=== PATIENT | female | born 1945 | race Caucasian/White ===

== ENCOUNTER 2018-07-13 17:14 | Inpatient (IN) | payer MEDICARE ==
[~2018-07-13] VITALS: Ht 170.2 cm; Wt 82.8 kg
[~2018-07-13 17:14] MED LIST: ASA81 MG PO; BENTYL20 MG PO; BUPROPION HCL150 M2 PO; CELEBREX100 MG PO; COUMADIN3 MG PO; DIGOXIN125 MCG PO; GABAPENTIN100 MG PO; LIPITOR10 MG PO; LISINOPRIL20 MG; MELATONIN 3 MG1 EACH PO; PROMETHAZINE HC25 M1 PO; Z.0.ASPIRIN325 MG PO; Z.0.METOPROLOL TART2 PO; Z.0.NORCO 5-325 TA1 PO; Z.0.PLAVIX75 MG PO; [UNRECOGNIZED DRUG - OTHER] PO
[2018-07-13] MEDS ORDERED: ASPIRIN 81 MG CHEW TAB PO ONE (18:00)
[2018-07-13 18:30] LABS: BASOPHILS # (AUTO) 0.1 (0.0-0.1); BASOPHILS % 0.8 % (0.0-1.0); EOSINOPHILS # (AUTO) 0.2 (0.0-0.4); EOSINOPHILS % 1.9 % (0.0-6.0); HEMATOCRIT 40.3 % (34.2-44.1); HEMOGLOBIN 13.2 g/dL (12.0-16.0); LYMPHOCYTES # (AUTO) 1.9 (1.0-3.2); LYMPHOCYTES % 20.5 % (18.0-39.1); MEAN CORPUSCULAR HEMOGLOBIN 31.2 pg (28-32); MEAN CORPUSCULAR HGB CONC 32.8 g/dL (31-35); MEAN CORPUSCULAR VOLUME 95.3 fL (81-99); MONOCYTES # (AUTO) 0.7 (0.2-0.8); MONOCYTES % 7.2 % (4.4-11.3); NEUTROPHILS # (AUTO) 6.3 (2.1-6.9); NEUTROPHILS % 69.3 % (38.7-80.0); PLATELET COUNT 187 x10e3/uL (140-360); RED BLOOD COUNT 4.23 x10e6/uL (3.6-5.1); RED CELL DISTRIBUTION WIDTH 13.8 % (11.7-14.4)
[2018-07-13 18:45] LABS: INR 2.81; PARTIAL THROMBOPLASTIN TIME 35.1 seconds (23.8-35.5); PROTHROMBIN TIME 27.8 seconds (11.9-14.5)
[2018-07-13 18:50] LABS: ALBUMIN 3.6 g/dL (3.5-5.0); ALBUMIN/GLOBULIN RATIO 1.2 (0.8-2.0); ANION GAP 15.2 mmol/L (8-16); CALCIUM 10.5 mg/dL (8.4-10.2); CREATININE, SERUM 1.59 mg/dL (0.57-1.11); POTASSIUM 4.2 mmol/L (3.5-5.1)
[2018-07-13 18:58] LABS: CREATINE KINASE MB 1.9 ng/mL (0-5.0)
--- NOTE | 2018-07-13 19:04 | Diagnostic Imaging Report ---
Examination: Single AP view of the chest. COMPARISON: None. INDICATION: Weakness, shortness of breath DISCUSSION: Lines/tubes: Dual-lead pacemaker Lungs: Central pulmonary venous congestion. No edema or consolidation. Pleura: There is no pleural effusion or pneumothorax. Heart and mediastinum: Cardiomegaly Bones and soft tissues: No acute bony abnormalities. IMPRESSION: 1. Cardiomegaly without decompensation Signed by: Dr. Alphonse Gann M.D. on 07/13/2018 7:01 PM
[2018-07-13 22:09] LABS: CLARITY,URINE SL CLOUDY (CLEAR); COLOR,URINE YELLOW (YELLOW)
[2018-07-13 22:10] LABS: BILIRUBIN,URINE NEGATIVE (NEGATIVE); KETONES,URINE TRACE (NEGATIVE); LEUKOCYTE ESTERASE ,URINE 1+ (NEGATIVE); NITRITE,URINE NEGATIVE (NEGATIVE); PROTEIN,URINE DIPSTICK TRACE (NEGATIVE); URINE UROBILINOGEN 0.2 mg/dL (0.2 - 1)
[2018-07-13 22:19] LABS: BACTERIA,URINE MANY /HPF; EPITHELIAL CELLS,URINE MODERATE /LPF
[2018-07-13] MEDS ORDERED: ONDANSETRON HCL INJ 2 MG/ML VIAL IV PRN (22:45)
[2018-07-13] MEDS ORDERED: METOPROLOL TARTRATE 25 MG TAB PO SCH (22:45)
[2018-07-13] MEDS ORDERED: FAMOTIDINE 20 MG TAB PO SCH (22:45)
[2018-07-13] MEDS ORDERED: NITROGLYCERIN 0.4 MG SUBL SL PRN (22:45)
[2018-07-13] MEDS ORDERED: SODIUM CHLORIDE FLUSH 10 ML SYR INJ PRN (22:45)
[2018-07-13] MEDS ORDERED: ASPIRIN 81 MG CHEW TAB ONE (22:49)
[2018-07-13 23:56] VITALS: BP 170/73
[2018-07-14] VITALS (23 sets, daily range): BP systolic 92–174; BP diastolic 46–105
[2018-07-14] MEDS: MORPHINE SULFATE 2 MG/ML SYR IV PRN ×4 (00:19→15:05)
[2018-07-14 02:11] LABS: CREATINE KINASE MB 1.9 ng/mL (0-5.0)
[2018-07-14 04:49] LABS: BASOPHILS # (AUTO) 0.1 (0.0-0.1); BASOPHILS % 0.6 % (0.0-1.0); EOSINOPHILS # (AUTO) 0.4 (0.0-0.4); EOSINOPHILS % 3.5 % (0.0-6.0); HEMATOCRIT 38.6 % (34.2-44.1); LYMPHOCYTES # (AUTO) 2.7 (1.0-3.2); LYMPHOCYTES % 27.4 % (18.0-39.1); MEAN CORPUSCULAR HEMOGLOBIN 31.8 pg (28-32); MEAN CORPUSCULAR HGB CONC 33.7 g/dL (31-35); MEAN CORPUSCULAR VOLUME 94.4 fL (81-99); MONOCYTES # (AUTO) 0.9 (0.2-0.8); MONOCYTES % 8.6 % (4.4-11.3); NEUTROPHILS # (AUTO) 5.9 (2.1-6.9); NEUTROPHILS % 59.6 % (38.7-80.0); PLATELET COUNT 155 x10e3/uL (140-360); RED BLOOD COUNT 4.09 x10e6/uL (3.6-5.1); RED CELL DISTRIBUTION WIDTH 13.5 % (11.7-14.4)
[2018-07-14 05:04] LABS: ANION GAP 13.9 mmol/L (8-16); CALCIUM 9.9 mg/dL (8.4-10.2); CHOL/HDL RATIO 5.5 (3.0-3.6); CREATININE, SERUM 1.22 mg/dL (0.57-1.11); POTASSIUM 3.9 mmol/L (3.5-5.1)
[2018-07-14] MEDS: FAMOTIDINE 20 MG TAB PO SCH ×2 (08:24→21:00)
[2018-07-14] MEDS: ASPIRIN 81 MG ENTERIC COATED PO SCH (08:25)
[2018-07-14] MEDS ORDERED: METOPROLOL TARTRATE 25 MG TAB PO SCH (09:00)
[2018-07-14 09:42] LABS: CREATINE KINASE MB 1.9 ng/mL (0-5.0)
[2018-07-14 15:41] LABS: BILIRUBIN,URINE NEGATIVE (NEGATIVE); CLARITY,URINE CLEAR (CLEAR); COLOR,URINE STRAW (YELLOW); KETONES,URINE NEGATIVE (NEGATIVE); LEUKOCYTE ESTERASE ,URINE TRACE (NEGATIVE); NITRITE,URINE NEGATIVE (NEGATIVE); PROTEIN,URINE DIPSTICK NEGATIVE (NEGATIVE); URINE UROBILINOGEN 0.2 mg/dL (0.2 - 1)
[2018-07-14 16:04] LABS: BACTERIA,URINE MANY /HPF; RBC,URINE 0-5 /HPF (0-5); TRANSITIONAL EPI CELLS,URINE FEW; WBC,URINE (MAN) 21-50 /HPF (0-5)
[2018-07-14] MEDS: LEVOFLOXACIN 750MG/D5W 150ML 150 ML IV SCH (17:38)
[2018-07-14] MEDS ORDERED: SODIUM CHLORIDE 0.9% 250ML 250 ML ONE (17:39)
[2018-07-14] MEDS ORDERED: BUSPIRONE HCL 5 MG TAB PO SCH (21:00)
[2018-07-14] MEDS: OMEGA 3 POLYUNSAT FATTY ACIDS 1000 MG SOFTGEL PO SCH (21:00)
[2018-07-14] MEDS ORDERED: TRAZODONE HCL 50 MG TAB PO SCH (21:00)
[2018-07-14] MEDS: GABAPENTIN 300 MG CAP PO SCH (21:00)
[2018-07-14] MEDS: TRAZODONE HCL 50 MG TAB PO SCH (21:00)
[2018-07-15] VITALS (11 sets, daily range): BP systolic 113–154; BP diastolic 54–63
[2018-07-15 05:29] LABS: INR 2.38; PROTHROMBIN TIME 24.4 seconds (11.9-14.5)
[2018-07-15 05:30] LABS: PARTIAL THROMBOPLASTIN TIME 35.3 seconds (23.8-35.5)
[2018-07-15] MEDS: ASPIRIN 81 MG ENTERIC COATED PO SCH (08:20)
[2018-07-15] MEDS: OLMESARTAN 20 MG TAB PO SCH (08:20)
[2018-07-15] MEDS: FAMOTIDINE 20 MG TAB PO SCH ×2 (08:20→21:00)
[2018-07-15] MEDS: GABAPENTIN 300 MG CAP PO SCH ×3 (08:20→21:00)
[2018-07-15] MEDS: DIGOXIN 0.125 MG TAB PO SCH (09:20)
[2018-07-15] MEDS: METOPROLOL TARTRATE 25 MG TAB PO SCH ×2 (09:21→16:01)
--- NOTE | 2018-07-15 09:51 | Progress Note ---
DATE: July 15, 2018 Ms. Whitehead is more awake. She, however, continues to have some alteration in her speech. PHYSICAL EXAMINATION VITALS: Afebrile, heart rate 71, blood pressure 124/50. CARDIOVASCULAR: Regular rhythm. No murmurs. LUNGS: Clear to auscultation bilaterally. ABDOMEN: Soft. EXTREMITIES: Pedal pulses are absent. Telemetry shows paced rhythm. INR is 2.38. Troponins remained 0.7. Creatinine is 1.22. ASSESSMENT 1. Chronic troponin elevation in the absence of myocardial infarction. 2. Urinary tract infection. 3. Atrial fibrillation: Status post permanent pacemaker placement. PLAN: Echocardiogram will be obtained to evaluate for LV function. Current medications are appropriate. IV antibiotics ongoing. The patient is slowly improving. Will continue to follow. I thank Dr. Foote for this consultation. Job#: [id number] JED
[2018-07-15] MEDS ORDERED: IBUPROFEN 600 MG TAB PO PRN (11:45)
[2018-07-15] MEDS: LEVOFLOXACIN 750MG/D5W 150ML 150 ML IV SCH (16:22)
[2018-07-15] MEDS ORDERED: WARFARIN SOD 2 MG TAB PO SCH (17:00)
[2018-07-15] MEDS: BUSPIRONE HCL 5 MG TAB PO SCH (21:00)
[2018-07-15] MEDS: TRAZODONE HCL 50 MG TAB PO SCH (21:00)
[2018-07-15] MEDS: OMEGA 3 POLYUNSAT FATTY ACIDS 1000 MG SOFTGEL PO SCH (21:00)
[2018-07-16] VITALS (8 sets, daily range): BP systolic 136–153; BP diastolic 56–70
[2018-07-16 05:11] LABS: INR 1.89; PROTHROMBIN TIME 20.4 seconds (11.9-14.5)
[2018-07-16 05:12] LABS: PARTIAL THROMBOPLASTIN TIME 35.1 seconds (23.8-35.5)
--- NOTE | 2018-07-16 09:57 | Progress Note ---
DATE: July 16, 2018 CARDIOLOGY PROGRESS NOTE Ms. Whitehead is much more awake. Denies any chest pain or shortness of breath. She is laying comfortably in bed. PHYSICAL EXAMINATION VITALS: Afebrile, heart rate 60, blood pressure 152/63, and O2 sat is 97%. CARDIOVASCULAR: Regular rhythm. S3 gallop. LUNGS: Clear to auscultation bilaterally. ABDOMEN: Soft. MEDICATIONS: Reviewed. ASSESSMENT 1. Pjlfe-tm-kouxvns systolic heart failure. 2. Coronary artery disease with chronic troponin elevation. PLAN: I will review her prior angiogram from records in the office to be certain if any further delineation of coronary anatomy and ischemia is indicated. In the absence of need for coronary angiography, warfarin will be held. Patient will need an upgrade of her pacemaker to a biventricular pacemaker. This was discussed with Dr. Connolly, zmt operator. Will plan for this procedure early this week. I thank Dr. Foote for this consultation. Job#: [id number] OK
[2018-07-16] MEDS: ASPIRIN 81 MG ENTERIC COATED PO SCH (10:00)
[2018-07-16] MEDS: DIGOXIN 0.125 MG TAB PO SCH (10:00)
[2018-07-16] MEDS: CEFTRIAXONE SOD 1 GM VIAL IV SCH ×2 (10:00→21:45)
[2018-07-16] MEDS: FAMOTIDINE 20 MG TAB PO SCH ×2 (10:00→21:00)
[2018-07-16] MEDS: OLMESARTAN 20 MG TAB PO SCH (10:00)
[2018-07-16] MEDS: GABAPENTIN 300 MG CAP PO SCH ×3 (10:00→21:00)
[2018-07-16] MEDS: METOPROLOL TARTRATE 25 MG TAB PO SCH ×2 (10:00→15:57)
[2018-07-16] MEDS: ACETAMINOPHEN 325 MG TAB PO PRN (17:30)
[2018-07-16] MEDS: OMEGA 3 POLYUNSAT FATTY ACIDS 1000 MG SOFTGEL PO SCH (21:00)
[2018-07-16] MEDS: TRAZODONE HCL 50 MG TAB PO SCH (21:00)
[2018-07-16] MEDS: BUSPIRONE HCL 5 MG TAB PO SCH (21:00)
[2018-07-17 03:36] VITALS: BP 165/70
[2018-07-17 05:44] LABS: INR 1.88; PROTHROMBIN TIME 20.3 seconds (11.9-14.5)
[2018-07-17 05:45] LABS: PARTIAL THROMBOPLASTIN TIME 33.6 seconds (23.8-35.5)
--- NOTE | 2018-07-17 06:34 | Progress Note ---
DATE: This is a patient who comes in with chest pain. Currently, the patient is denying any chest pain and lying comfortably and no complaints. PHYSICAL EXAMINATION GENERAL: The patient is alert and oriented times 3. In good spirits. VITAL SIGNS: Temperature is 97.2, blood pressure 165/70, pulse ox 95% on O2 at 2 L. HEENT: Normocephalic and atraumatic. Pupils reactive to light and accommodation. CV: S1 and S2 irregular. ABDOMEN: Nontender and nondistended. LUNGS: Decreased air entry in lung bonner. EXTREMITIES: Trace edema. LABORATORY VALUES: Digoxin was 0.4. Coags are PT of 20.3, INR 1.8. Coumadin has been held. ASSESSMENT 1. Vxkin-vk-ptneadk systolic heart failure. 2. Coronary artery disease with troponin elevation: The patient is going to have an angiogram today. Warfarin is held. Consult with Dr. Connolly has been done for upgrade of her pacemaker. 3. Urinary tract infection which grew klebsiella and gram-negative rods: Antibiotics were changed to Rocephin. Labs are pending. Will go ahead and do a CBC and CMP tomorrow. Further recommendations per clinical course. For further information, look in the chart. Job#: [id number] JED
[2018-07-17] MEDS ORDERED: REGADENOSON 0.4 MG/5 ML SYR IV ONE (07:58)
[2018-07-17 09:00] VITALS: BP 165/70
[2018-07-17] MEDS: ASPIRIN 81 MG ENTERIC COATED PO SCH (09:00)
[2018-07-17] MEDS: OLMESARTAN 20 MG TAB PO SCH (09:50)
[2018-07-17] MEDS: METOPROLOL TARTRATE 25 MG TAB PO SCH ×2 (09:50→16:51)
[2018-07-17] MEDS: DIGOXIN 0.125 MG TAB PO SCH (09:50)
[2018-07-17] MEDS: GABAPENTIN 300 MG CAP PO SCH ×3 (09:51→21:26)
[2018-07-17] MEDS: FAMOTIDINE 20 MG TAB PO SCH ×2 (09:51→21:26)
[2018-07-17] MEDS: CEFTRIAXONE SOD 1 GM VIAL IV SCH ×2 (09:51→21:26)
--- NOTE | 2018-07-17 12:03 | History and Physical ---
REASON FOR ADMISSION: Altered mental status. HISTORY OF PRESENT ILLNESS: This is a 73-year-old woman with history of atrial flutter status post ablation, sick sinus syndrome status post dual chamber [employer] permanent pacemaker, mild coronary artery disease on cardiac catheterization June 01, 2016, peripheral arterial disease with patent left SFA stent as well as 60% to 70% in-stent restenosis of the right external iliac artery and infrapopliteal peripheral arterial disease, history of CVA, chronic systolic heart failure and hypertension, who presents with complaints of altered mental status. Patient's family indicates she has been progressively more somnolent for the last 2 weeks with complaints of progressive back pain. She denies any chest pain, shortness of breath, palpitations, edema, orthopnea or PND. She denies any fever, chills, cough or diarrhea. Due to her somnolence, she was brought to the ER for further evaluation where she was found to have a mildly elevated troponin of 0.774 and a BNP of 137. Urinalysis had moderate epithelial cells but did demonstrate trace protein, trace ketones, 1+ leukocyte esterase, 6-10 RBCs and 11-20 WBCs with many bacteria. REVIEW OF SYSTEMS: Negative except as per HPI. PAST MEDICAL HISTORY 1. Chronic systolic heart failure. 2. Mild diffuse coronary artery disease on cardiac catheterization June 01, 2016. 3. Atrial flutter status post ablation. 4. Sick sinus syndrome status post [employer] permanent pacemaker. 5. Peripheral arterial disease with patent left SFA stent and most recently left SFA atherectomy and percutaneous transluminal angioplasty. 6. Hypertension. PAST SURGICAL HISTORY: Pacemaker insertion, hysterectomy, cholecystectomy. ALLERGIES: PLEASE SEE EMR. MEDICATIONS: Please see medication list. SOCIAL HISTORY: Smokes a pack a day. No alcohol or drugs. FAMILY HISTORY: Noncontributory to current illness. PHYSICAL EXAMINATION VITAL SIGNS: Temperature 98.7 degrees, pulse 68, respiratory rate 17, blood pressure 139/88, oxygen saturation 100% on 2 liters nasal cannula. GENERAL: Elderly woman in no acute distress. Awake and alert. HEENT: Normocephalic, atraumatic. Pupils equal, no scleral icterus. NECK: Supple. No thyromegaly or cervical lymphadenopathy, no carotid bruits. LUNGS: Clear to auscultation bilaterally. No wheezes or crackles. CARDIOVASCULAR: Normal rate, regular rhythm. No murmur. Normal S1 and S2. ABDOMEN: Soft, nontender. EXTREMITIES: No edema. NEURO: Nonfocal exam. LABS: WBC 9.9, hemoglobin 13, hematocrit 38.6, platelets 155. Sodium 142, potassium 3.9, chloride 107, CO2 25, BUN 17, creatinine 1.22. Troponin 0.774. INR 2.81. CHEST X-RAY: Cardiomegaly without decompensation. ELECTROCARDIOGRAM: Electronic ventricular pacemaker. TELEMETRY: Paced rhythm. IMPRESSION 1. Altered mental status/somnolence. 2. Abnormal urinalysis, suspicious for urinary tract infection. 3. Elevated troponin, not consistent with myocardial infarction. 4. Vruli-hu-ftlsbxn systolic heart failure. 5. Hypertension. 6. Dyslipidemia. 7. Atrial fibrillation status post ablation. 8. Sick sinus syndrome status post permanent pacemaker. 9. Peripheral arterial disease. RECOMMENDATIONS: Repeat UA, send urine culture. Suspect patient's somnolence may be related to a urinary tract infection in light of patient's back pain. Will request medicine consultation with Dr. Foote. In the meantime, pacemaker interrogation although this would not explain patient's symptoms. Continue home cardiac medications otherwise. Job#: [id number] EV
--- NOTE | 2018-07-17 12:28 | Progress Note ---
DATE: July 17, 2018 CARDIOLOGY PROGRESS NOTE SUBJECTIVE: The patient denies chest pain or shortness of breath. She was seen for a nuclear stress test. She is planned for bi-V pacemaker upgrade this afternoon by Dr. Connolly. OBJECTIVE VITAL SIGNS: Temperature 97.8 degrees, pulse 61, respiratory rate 18, blood pressure 165/70, oxygen saturation 95% on 2 liters nasal cannula. GENERAL: Elderly woman in no acute distress. Awake and alert. LUNGS: Clear to auscultation bilaterally. No wheezes or crackles. CARDIOVASCULAR: Normal rate, regular rhythm. No murmur. Normal S1 and S2. ABDOMEN: Soft, nontender. EXTREMITIES: No edema. CARDIAC MEDICATIONS 1. Digoxin 0.125 mg p.o. q.a.m. 2. Metoprolol tartrate 25 mg p.o. b.i.d. 3. Olmesartan 20 mg p.o. daily. 4. Fish oil 1,000 mg p.o. nightly. 5. Aspirin 81 mg p.o. daily. LABS: None today. TELEMETRY: Normal sinus rhythm. IMPRESSION 1. Rtacw-sy-miknbfa systolic heart failure. 2. Coronary artery disease with chronic troponin elevation. 3. Atrial fibrillation. 4. Status post permanent pacemaker implantation. 5. Escherichia coli and Klebsiella pneumoniae urinary tract infection. RECOMMENDATIONS: We will review images from the nuclear stress test once they are available. Given her recent coronary angiogram, cardiac catheterization was deferred. Bi-V pacemaker upgrade this afternoon. Continue current cardiac medications otherwise. Antibiotics per primary service. Thank you for this consult. We will continue to follow. Job#: [id number]
--- NOTE | 2018-07-17 12:52 | Cardiology Report ---
DATE OF STUDY: July 17, 2018 LEXISCAN NUCLEAR STRESS TEST INDICATIONS: Coronary artery disease, congestive heart failure. The patient was stressed using a 1-minute intravenous infusion of Lexiscan. Rest and stress Myoview imaging was obtained. Resting electrocardiogram shows a ventricularly paced rhythm. Both nuclear imaging in rest and stress is normal. However, dilatation of the left ventricle is noted with an end-diastolic volume of 159 mL. LV ejection fraction is 39%. CONCLUSIONS 1. Normal myocardial perfusion study without evidence of ischemia or infarction. 2. Dilated left ventricle with moderately reduced left ventricular ejection fraction of 39%. Job#: [id number]
[2018-07-17] MEDS: ACETAMINOPHEN 325 MG TAB PO PRN (14:38)
[2018-07-17 14:44] VITALS: BP 151/65
[2018-07-17 16:47] VITALS: BP 169/73
[2018-07-17] MEDS ORDERED: BACITRACIN 50,000 UNIT VIAL ONE (17:35)
[2018-07-17] MEDS ORDERED: VANCOMYCIN 1GM/NS 250 ML 250 ML ONE ×2 (17:35→18:06)
[2018-07-17] MEDS ORDERED: LIDOCAINE HCL 2% LOCAL 20 ML VIAL ONE (17:35)
[2018-07-17] MEDS ORDERED: IOPAMIDOL 300MG/ML 50ML INFUS..BTL IV ONE (17:35)
[2018-07-17] MEDS ORDERED: SODIUM CHLORIDE 0.9% 500ML 500 ML ONE (17:35)
[2018-07-17] MEDS ORDERED: SODIUM CHLORIDE 0.9% 1000ML 2,000 ML ONE (17:36)
[2018-07-17] MEDS ORDERED: FENTANYL CITRATE/PF 100MCG/2 ML INJ ONE (18:05)
[2018-07-17] MEDS ORDERED: MIDAZOLAM HCL 2 MG/2 ML VIAL ONE ×2 (18:05→18:27)
[2018-07-17 19:55] VITALS: BP 151/85
[2018-07-17 19:56] VITALS: BP 151/85
[2018-07-17] MEDS: TRAZODONE HCL 50 MG TAB PO SCH (21:00)
[2018-07-17] MEDS: BUSPIRONE HCL 5 MG TAB PO SCH (21:00)
[2018-07-17] MEDS: OMEGA 3 POLYUNSAT FATTY ACIDS 1000 MG SOFTGEL PO SCH (21:26)
--- NOTE | 2018-07-18 00:07 | Operative Report ---
DATE OF PROCEDURE: July 17, 2018 REFERRING PHYSICIAN: Dr. Wadsworth PREPROCEDURE DIAGNOSES: 1. 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 2. Congestive heart failure, class 3. 3. Significant bradycardia with significant right ventricular pacing more than 70%. 4. Chronic persistent atrial fibrillation. POSTPROCEDURE DIAGNOSES: 1. 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 2. Congestive heart failure, class 3. 3. Significant bradycardia with significant right ventricular pacing more than 70%. 4. Chronic persistent atrial fibrillation. ESTIMATED BLOOD LOSS: 5 mL. COMPLICATIONS: None. PROCEDURES PERFORMED: 1. Upgrade to biventricular cardiac pacemaker. 2. Moderate sedation. Moderate conscious sedation was provided under my direct supervision by a sedation-trained nurse. Sedation approximate time 45 minutes, Versed and Fentanyl. There were no complications. See sedation form for details. DESCRIPTION OF PROCEDURE: After informed consent was obtained, patient was brought to the electrophysiology laboratory in a fasting, nonsedated state. Area over her chest was prepped and draped in the usual sterile fashion. Moderate sedation and prophylactic antibiotic were given, 1% lidocaine was used as local anesthetic, and a 3-cm skin incision was made in the left subclavicular area. Electrocautery and sharp and blunt dissection were used to reach the previous device. The device was freed out of the pocket. Vascular access was obtained x1 in the left axillary vein using the modified Seldinger technique under fluoroscopic guidance. A 9.5-Chinese sheath was placed. The coronary sinus was cannulated using AL2 catheter and Wholey wire, CS angiogram was performed, demonstrated a good posterolateral branch, which was successfully cannulated. Pacing threshold there was 2.5 at 0.5, impedance 1060. The sheath was removed from the body. The lead was secured to fascia using #0 silk. Pocket was irrigated with antibiotic solution using the pulse airplane refueler. Hemostasis was meticulous. The old atrial and right ventricular leads were disconnected from the old device and connected to this new device. Also, the new left ventricular lead was connected through this new device, and the new device was placed in the pocket. Incision was closed using Vicryl and Dermabond. Patient tolerated the procedure well. Procedure was deemed complete. SUMMARY OF HARDWARE IMPLANTED: 1. The new biventricular pacemaker is [employer], model #[id number], [id number]. 2. The new left ventricular lead is [employer], [id number], [id number]. 3. The old right atrial and right ventricular leads were [employer], were chronic and working well, used through this new device. IMPRESSION: Successful upgrade to biventricular pacemaker. PLAN: 1. Routine postoperative monitoring on telemetry bed. 2. Chest x-ray. 3. Follow up in 2 weeks. Job#: [id number]
[2018-07-18 00:34] VITALS: BP 152/76
[2018-07-18] MEDS: ACETAMINOPHEN 325 MG TAB PO PRN (02:18)
--- NOTE | 2018-07-18 02:48 | Consultation ---
DATE OF CONSULTATION: July 17, 2018 REFERRING PHYSICIAN: Dr. Wadsworth. REASON FOR CONSULTATION: Cardiomyopathy, pacemaker dependent. HISTORY OF PRESENT ILLNESS: This is a 73-year-old woman with history of chronic persistent atrial fibrillation, history of significant bradycardia with a dual-chamber pacemaker in place. She has been having congestive heart failure with ejection fraction decreasing to 40% associated with shortness of breath. She has congestive heart failure class III. She has significant bradycardia that requires pacing about 70% of the time, was admitted at this time with progressive shortness of breath. Pacemaker is normally functioning. The patient is not pacemaker dependent. REVIEW OF SYSTEMS CONSTITUTIONAL: As per HPI. CARDIOVASCULAR: As per HPI. RESPIRATORY: Negative. GASTROINTESTINAL: Negative. GENITOURINARY: Negative. MUSCULOSKELETAL: Negative. EYES: Negative. ENT: Negative. ALLERGY/IMMUNOLOGY: Negative. PSYCHIATRIC: Negative. PAST MEDICAL HISTORY: Hypertension, cardiomyopathy as above. SOCIAL HISTORY: Denies smoking alcohol. FAMILY HISTORY: No premature coronary artery disease. PHYSICAL EXAMINATION VITAL SIGNS: Blood pressure 148/60, pulse 70, respirations 20, O2 sat 98%. GENERAL: No acute distress. HEENT: Moist mucous membranes. CARDIOVASCULAR: Irregular. RESPIRATORY: Clear. ABDOMEN: Soft, nontender. MUSCULOSKELETAL: 2+ distal pulses. NEUROLOGICAL: No focal deficit. SKIN: No lesions. PSYCHIATRIC: Normal thought process. EKG: Ventricular paced rhythm, atrial fibrillation. IMPRESSION 1. Nonischemic cardiomyopathy with ejection fraction of 40%, likely right ventricular pacing induced. 2. Significant bradycardia requiring biventricular pacing 70% of the time. 3. Chronic persistent atrial fibrillation. 4. Congestive heart failure class III. PLAN: I had a long discussion with the patient. She will benefit from upgrade to EXECUTIVE CREATIVE DIRECTOR and this case will be EXECUTIVE CREATIVE DIRECTOR-P, explained the procedure in detail with benefits and risks. The patient voices understanding and wishes to proceed. Will plan for an upgrade to biventricular pacemaker placement. Thank you for letting us participate in Ms. [facility]. Job#: [id number]
[2018-07-18 05:01] VITALS: BP 175/56
[2018-07-18] MEDS: METOPROLOL TARTRATE 25 MG TAB PO SCH (05:02)
[2018-07-18 05:20] LABS: INR 1.63; PROTHROMBIN TIME 18.2 seconds (11.9-14.5)
[2018-07-18 05:21] LABS: PARTIAL THROMBOPLASTIN TIME 29.3 seconds (23.8-35.5)
[2018-07-18 08:00] VITALS: BP 172/75
[2018-07-18] MEDS: ASPIRIN 81 MG ENTERIC COATED PO SCH (08:26)
[2018-07-18] MEDS: DIGOXIN 0.125 MG TAB PO SCH (08:26)
[2018-07-18] MEDS: GABAPENTIN 300 MG CAP PO SCH (08:26)
[2018-07-18] MEDS: OLMESARTAN 20 MG TAB PO SCH (08:26)
[2018-07-18] MEDS: FAMOTIDINE 20 MG TAB PO SCH (08:27)
[2018-07-18] MEDS: CEFTRIAXONE SOD 1 GM VIAL IV SCH (10:00)
--- NOTE | 2018-07-18 11:31 | Progress Note ---
DATE: July 18, 2018 CARDIOLOGY PROGRESS NOTE SUBJECTIVE: Patient denies chest pain or shortness of breath. She underwent bi-V pacemaker upgrade by Dr. Connolly yesterday. OBJECTIVE VITAL SIGNS: Temperature 97.7 degrees, pulse 70, respiratory rate 18, blood pressure 172/75, and oxygen saturation 96% on room air. GENERAL: Elderly woman, awake and alert, in no acute distress. LUNGS: Clear to auscultation bilaterally. No wheezes or crackles. CARDIOVASCULAR: Normal rate, regular rhythm. No murmur. Normal S1 and S2. ABDOMEN: Soft and nontender. EXTREMITIES: No edema. CARDIAC MEDICATIONS 1. Digoxin 0.125 mg p.o. q.a.m. 2. Olmesartan 20 mg p.o. daily. 3. Aspirin 81 mg p.o. daily. 4. Metoprolol tartrate 25 mg p.o. b.i.d. LABS: None today. INR 1.63. TELEMETRY: Normal sinus rhythm. IMPRESSION 1. Vprmq-bq-wwucxms systolic heart failure. 2. Coronary artery disease with chronic troponin elevation. 3. Atrial fibrillation, status post permanent pacemaker implantation, status post biventricular upgrade yesterday. 4. Escherichia coli and Klebsiella pneumoniae urinary tract infection. 5. Altered mental status, resolved. 6. Hypertension. 7. Dyslipidemia. RECOMMENDATIONS: Patient's blood pressure is not well controlled. Increase Olmesartan. Continue current cardiac medications. Otherwise, antibiotics per primary service. Pacemaker interrogation today with normal function. Please have patient followup with us in the office in two weeks. Thank you. Job#: [id number] SHANTEL
[2018-07-19] MEDS ORDERED: OLMESARTAN 20 MG TAB PO SCH (09:00)
== END 2018-07-18 10:59 | disposition home or self-care (01) | DRG 223 ==
LOC: ER 17:14 → ERHOLD 23:09 → ICU 23:56 → IMCU 07-14 19:53
PROVIDERS: ADMIT Family Medicine; ATTEND Family Medicine
PROC: 02HL3KZ Insertion of Defibrillator Lead into Left Ventricle, Percutaneous Approach (ICD-10-PCS; principal; 2018-07-17)
PROC: 0JH609Z Insertion of Cardiac Resynchronization Defibrillator Pulse Generator into Chest Subcutaneous Tissue and Fascia, Open Approach (ICD-10-PCS; 2018-07-17)
PROC: B2101ZZ Fluoroscopy of Single Coronary Artery using Low Osmolar Contrast (ICD-10-PCS; 2018-07-17)
PROC: 02WA3MZ Revision of Cardiac Lead in Heart, Percutaneous Approach (ICD-10-PCS; 2018-07-17)
PROC: 0JPT0PZ Removal of Cardiac Rhythm Related Device from Trunk Subcutaneous Tissue and Fascia, Open Approach (ICD-10-PCS; 2018-07-17)
DX: I11.0 Hypertensive heart disease with heart failure (principal); N39.0 Urinary tract infection, site not specified; I50.23 Acute on chronic systolic (congestive) heart failure; I42.9 Cardiomyopathy, unspecified; I25.10 Atherosclerotic heart disease of native coronary artery without angina pectoris; Z98.61 Coronary angioplasty status; Z95.820 Peripheral vascular angioplasty status with implants and grafts; F17.210 Nicotine dependence, cigarettes, uncomplicated; E78.5 Hyperlipidemia, unspecified; R74.9 Abnormal serum enzyme level, unspecified; R00.1 Bradycardia, unspecified; I48.2 Chronic atrial fibrillation; Z79.01 Long term (current) use of anticoagulants; B96.20 Unspecified Escherichia coli [E. coli] as the cause of diseases classified elsewhere; B96.1 Klebsiella pneumoniae [K. pneumoniae] as the cause of diseases classified elsewhere; J44.9 Chronic obstructive pulmonary disease, unspecified; Z99.81 Dependence on supplemental oxygen
CPT/HCPCS: 33224; 33228; 36415; 71045; 78452; 80048; 80053; 80061; 80162; 81001; 82550; 82553; 83880; 84484; 85025; 85610; 85730; 87086; 87186; 93005; 93017; 93306; 99284; A9502; J0696; J2001; J2250; J2270; J2405; J3370; J7030; J7040; J7050

== ENCOUNTER → 2018-11-08 | Outpatient (CLI) | payer MEDICARE ==
--- NOTE | 2018-11-08 14:51 | Diagnostic Imaging Report ---
EXAMINATION: CHEST 2 VIEWS INDICATION: Shortness of breath. COMPARISON: Chest radiograph 07/13/18. FINDINGS: TUBES and LINES: Left-sided pacemaker with one lead projecting over the right atrium and two leads projecting over the right ventricle. LUNGS: Lungs are well inflated. Mild left retrocardiac atelectasis. No evidence of lobar consolidation. No evidence of pulmonary edema. PLEURA: No pleural effusion or pneumothorax. HEART AND MEDIASTINUM: Enlarged cardiomediastinal silhouette. Atherosclerotic aortic calcifications. BONES AND SOFT TISSUES: No acute osseous lesion. Soft tissues are unremarkable. UPPER ABDOMEN: No free air under the diaphragm. IMPRESSION: Cardiomegaly without evidence of pulmonary edema. Signed by: Dr. Valente Joshi MD on 11/08/2018 2:48 PM
== END ==
LOC: RAD 13:27
PROVIDERS: ATTEND Internal Medicine Interventional Cardiology
DX: R06.02 Shortness of breath (principal); I51.7 Cardiomegaly; Z95.0 Presence of cardiac pacemaker
CPT/HCPCS: 71046